=== PATIENT | male | born 2000 | race Caucasian/White ===

== ENCOUNTER 2021-08-18 11:54 | Inpatient (IN) ==
--- NOTE | 2021-08-18 12:16 | Emergency Department Note ---
History of Present Illness General Chief complaint: Mental Health Evaluation Stated complaint: MENTAL HEALTH EVAL,REF Time Seen by Provider: 08/18/21 12:02 Source: patient and family (Father at bedside) History of Present Illness Provider complaint: Mental health evaluation 20-year-old male presents emergency department with his father from [facility] for mental health evaluation. Patient is presenting for suicidal ideation. Patient states he has been having daily suicidal ideations for last 3 to 4 months 1 to kill himself with plans to hang himself from his balcony. Patient reports he is not been doing well in school and has not been turning in assignments or going to class. Patient reports increased sleepiness, decreased appetite. Father reports that the patient has a history of suicidal ideation in high school.Not currently on any psychiatric medications. Home Medications Medication Instructions Recorded Confirmed Type No Known Home Medications 08/18/21 08/18/21 History Allergies Allergy/AdvReac Type Severity Reaction Status Date / Time Penicillins AdvReac Joint Pain Verified 08/18/21 14:21 Past Med/Surg History Medical History (Updated 08/18/21 @ 15:05 by Grayson Silva) Suicidal ideation Surgical History (Updated 08/18/21 @ 12:15 by Grayson Silva) No pertinent past surgical history Family History (Updated 08/18/21 @ 12:15 by Grayson Silva) Other Depression Social History Smoking Status: Never smoker Preferred Language: Arabic Feels Safe at Home: Yes Review of Systems A total of 10 systems reviewed and were otherwise negative Physical Exam Vital Signs Vital Signs - 24 hr 08/18/21 11:55 08/18/21 12:39 08/18/21 13:57 Temperature 36.4 C L Temperature Source Temporal Artery Scan Pulse Rate 82 Pulse Rate [Finger] 76 Respiratory Rate 16 16 14 Respiratory Effort / Characteristics Non-Labored Non-Labored Spontaneous Respiratory Depth Normal Normal Blood Pressure 136/88 Blood Pressure [Left Arm] 124/67 Blood Pressure Mean 104 Blood Pressure Mean [Left Arm] 86 Pulse Oximetry 100 100 Oxygen Delivery Method Room Air Room Air Sepsis Recent Fever Within 48 Hours No Sepsis New/Unexplained Change in Mental Status N/A Sepsis Action Taken by Nursing No Action Required Physical Exam GENERAL: He is oriented to person, place, and time. He appears well-developed and well-nourished. He does not appear distressed. HENT: Exam performed. - Head: Normocephalic and atraumatic. - Right Ear: External ear normal. No mastoid tenderness. - Left Ear: External ear normal. No mastoid tenderness. - Mouth/Throat: The oropharynx is clear and moist. No trismus in the jaw. No dental abscesses or uvula swelling. No oropharyngeal exudate or tonsillar abscesses. EYES: Conjunctivae and EOM are normal. Pupils are equal, round, and reactive to light. Right eye exhibits no discharge. Left eye exhibits no discharge. No scleral icterus. NECK: Normal range of motion. Neck supple. No JVD present. No spinous process tenderness present. No carotid bruit present. No rigidity. No tracheal deviation and normal range of motion present. No Brudzinski's sign and no Kernig's sign noted. CV: Normal rate, regular rhythm, normal heart sounds and intact distal pulses. There is no peripheral edema. Palpable radial pulses bue. PULM/CHEST: Effort normal and breath sounds normal. No respiratory distress. No stridor. He has no wheezes. He has no rales. - Chest Wall: He exhibits no tenderness. ABD: The abdomen is soft. Bowel sounds are normal. He has no distension. No mass is present. There is no tenderness. There is no rebound, no guarding, no Chapa's sign and no tenderness at McBurney's point. Rovsig negative. MUSC/SKEL: Normal range of motion. There is no peripheral edema, tenderness or deformity. LYMPH: No cervical adenopathy. NEURO: He is alert and oriented to person, place, and time. He has normal stre ngth. No cranial nerve deficit or sensory deficit. Coordination and gait normal. GCS eye subscore is 4. GCS verbal subscore is 5. GCS motor subscore is 6. Cerebellar tests wnl. SKIN: Skin is warm and dry. He is not diaphoretic. PSYCH: Positive suicidal ideation. Course Course 1202: The patient was evaluated in room A5. A complete history and physical exam was performed 1503: Vital signs stable. Patient medically cleared. Patient was evacuated by psychiatry and accepted to 3 S. for admission. Medical Decision Making Laboratory Data Result diagrams: 08/18/21 12:16 08/18/21 12:16 Lab Results 08/18/21 08/18/21 08/18/21 Range/Units 12:16 12:16 12:16 WBC 7.51 (4.8-10.8) K/uL RBC 5.36 (4.7-6.1) M/uL Hgb 16.2 (14.0-18.0) g/dL Hct 46.4 (42-52) % MCV 86.6 (80-100) fL MCH 30.2 (25-34) pg MCHC 34.9 (32-36) g/dL RDW Std Deviation 38.3 (36.4-46.3) fL RDW Coeff of Maria C 12.0 (11.5-14.5) % Plt Count 314 (130-400) K/uL MPV 9.7 (7.4-10.4) fL Immature Gran % (Auto) 0.1 % Neut % (Auto) 51.1 % Lymph % (Auto) 35.8 % [place] % (Auto) 8.4 % Eos % (Auto) 3.5 % Baso % (Auto) 1.1 % Neut # (Auto) 3.84 (1.4-6.5) K/uL Lymph # (Auto) 2.69 (1.2-3.4) K/uL [place] # (Auto) 0.63 H (0.11-0.59) K/uL Eos # (Auto) 0.26 (0-0.5) K/uL Baso # (Auto) 0.08 (0-0.2) K/uL Immature Gran # (Auto) 0.01 (0.00-0.02) K/uL Sodium 139 (136-145) mmol/L Potassium 3.8 (3.5-5.1) mmol/L Chloride 103 (98-107) mmol/L Carbon Dioxide 28 (21-32) mmol/L Anion Gap 8 (3-11) BUN 11 (6-23) mg/dl Creatinine 1.02 (0.6-1.4) mg/dl Est Cr Clr Drug Dosing 117.8 ml/min Est GFR ( Amer) 122.1 ml/min Est GFR (Non-Af Amer) 105.3 ml/min BUN/Creatinine Ratio 10.8 (10-20) Glucose 95 (70-99(Fasting)) mg/dl Calcium 10.1 (8.5-10.1) mg/dl Total Bilirubin 0.6 (0.2-1.0) mg/dl AST 12 L (13-39) U/L ALT 8 (7-52) U/L Alkaline Phosphatase 64 (34-104) U/L Total Protein 7.4 (6.0-8.3) gm/dl Albumin 5.2 H (3.4-5.0) gm/dl Globulin 2.2 L (2.5-4.0) gm/dl Albumin/Globulin Ratio 2.4 H (0.9-2) TSH 2.771 (0.300-4.500) uIu/ml Urine Color Urine Appearance (Clear) Urine pH (4.5-7.5) Ur Specific [place] (1.000-1.030) Urine Protein (Negative) Urine Glucose (UA) (Negative) Urine Ketones (Negative) Urine Blood (Negative) Urine Nitrite (Negative) Urine Bilirubin (Negative) Urine Urobilinogen (Negative) Ur Leukocyte Esterase (Negative) Salicylates (3.0-30) mg/dl Urine Opiates Screen (Neg) Ur Methadone, Qual (Neg) Acetaminophen (10-30) ug/ml Urine Barbiturates (Neg) Ur Phencyclidine (PCP) (Neg) U Amphetamin/Meth Scrn (Neg) MDMA (Ecstasy) Screen (Neg) U Benzodiazepines Scrn (Neg) Ur Cocaine Metabolite (Neg) U Marijuana (THC) Screen (Neg) Ethyl Alcohol mg/dL (<10.0) mg/dl SARS-CoV-2, RNA, NAAT (NEGATIVE) 08/18/21 08/18/21 08/18/21 Range/Units 12:16 12:16 12:32 WBC (4.8-10.8) K/uL RBC (4.7-6.1) M/uL Hgb (14.0-18.0) g/dL Hct (42-52) % MCV (80-100) fL MCH (25-34) pg MCHC (32-36) g/dL RDW Std Deviation (36.4-46.3) fL RDW Coeff of Maria C (11.5-14.5) % Plt Count (130-400) K/uL MPV (7.4-10.4) fL Immature Gran % (Auto) % Neut % (Auto) % Lymph % (Auto) % [place] % (Auto) % Eos % (Auto) % Baso % (Auto) % Neut # (Auto) (1.4-6.5) K/uL Lymph # (Auto) (1.2-3.4) K/uL [place] # (Auto) (0.11-0.59) K/uL Eos # (Auto) (0-0.5) K/uL Baso # (Auto) (0-0.2) K/uL Immature Gran # (Auto) (0.00-0.02) K/uL Sodium (136-145) mmol/L Potassium (3.5-5.1) mmol/L Chloride (98-107) mmol/L Carbon Dioxide (21-32) mmol/L Anion Gap (3-11) BUN (6-23) mg/dl Creatinine (0.6-1.4) mg/dl Est Cr Clr Drug Dosing ml/min Est GFR ( Amer) ml/min Est GFR (Non-Af Amer) ml/min BUN/Creatinine Ratio (10-20) Glucose (70-99(Fasting)) mg/dl Calcium (8.5-10.1) mg/dl Total Bilirubin (0.2-1.0) mg/dl AST (13-39) U/L ALT (7-52) U/L Alkaline Phosphatase (34-104) U/L Total Protein (6.0-8.3) gm/dl Albumin (3.4-5.0) gm/dl Globulin (2.5-4.0) gm/dl Albumin/Globulin Ratio (0.9-2) TSH (0.300-4.500) uIu/ml Urine Color Yellow Urine Appearance Clear (Clear) Urine pH 5.5 (4.5-7.5) Ur Specific [place] 1.012 (1.000-1.030) Urine Protein Negative (Negative) Urine Glucose (UA) Negative (Negative) Urine Ketones Negative (Negative) Urine Blood Negative (Negative) Urine Nitrite Negative (Negative) Urine Bilirubin Negative (Negative) Urine Urobilinogen Negative (Negative) Ur Leukocyte Esterase Negative (Negative) Salicylates < 3.0 L (3.0-30) mg/dl Urine Opiates Screen (Neg) Ur Methadone, Qual (Neg) Acetaminophen < 3 L (10-30) ug/ml Urine Barbiturates (Neg) Ur Phencyclidine (PCP) (Neg) U Amphetamin/Meth Scrn (Neg) MDMA (Ecstasy) Screen (Neg) U Benzodiazepines Scrn (Neg) Ur Cocaine Metabolite (Neg) U Marijuana (THC) Screen (Neg) Ethyl Alcohol mg/dL < 10.0 (<10.0) mg/dl SARS-CoV-2, RNA, NAAT (NEGATIVE) 08/18/21 08/18/21 Range/Units 12:32 12:32 WBC (4.8-10.8) K/uL RBC (4.7-6.1) M/uL Hgb (14.0-18.0) g/dL Hct (42-52) % MCV (80-100) fL MCH (25-34) pg MCHC (32-36) g/dL RDW Std Deviation (36.4-46.3) fL RDW Coeff of Maria C (11.5-14.5) % Plt Count (130-400) K/uL MPV (7.4-10.4) fL Immature Gran % (Auto) % Neut % (Auto) % Lymph % (Auto) % [place] % (Auto) % Eos % (Auto) % Baso % (Auto) % Neut # (Auto) (1.4-6.5) K/uL Lymph # (Auto) (1.2-3.4) K/uL [place] # (Auto) (0.11-0.59) K/uL Eos # (Auto) (0-0.5) K/uL Baso # (Auto) (0-0.2) K/uL Immature Gran # (Auto) (0.00-0.02) K/uL Sodium (136-145) mmol/L Potassium (3.5-5.1) mmol/L Chloride (98-107) mmol/L Carbon Dioxide (21-32) mmol/L Anion Gap (3-11) BUN (6-23) mg/dl Creatinine (0.6-1.4) mg/dl Est Cr Clr Drug Dosing ml/min Est GFR ( Amer) ml/min Est GFR (Non-Af Amer) ml/min BUN/Creatinine Ratio (10-20) Glucose (70-99(Fasting)) mg/dl Calcium (8.5-10.1) mg/dl Total Bilirubin (0.2-1.0) mg/dl AST (13-39) U/L ALT (7-52) U/L Alkaline Phosphatase (34-104) U/L Total Protein (6.0-8.3) gm/dl Albumin (3.4-5.0) gm/dl Globulin (2.5-4.0) gm/dl Albumin/Globulin Ratio (0.9-2) TSH (0.300-4.500) uIu/ml Urine Color Urine Appearance (Clear) Urine pH (4.5-7.5) Ur Specific [place] (1.000-1.030) Urine Protein (Negative) Urine Glucose (UA) (Negative) Urine Ketones (Negative) Urine Blood (Negative) Urine Nitrite (Negative) Urine Bilirubin (Negative) Urine Urobilinogen (Negative) Ur Leukocyte Esterase (Negative) Salicylates (3.0-30) mg/dl Urine Opiates Screen Neg (Neg) Ur Methadone, Qual Neg (Neg) Acetaminophen (10-30) ug/ml Urine Barbiturates Neg (Neg) Ur Phencyclidine (PCP) Neg (Neg) U Amphetamin/Meth Scrn Neg (Neg) MDMA (Ecstasy) Screen Neg (Neg) U Benzodiazepines Scrn Neg (Neg) Ur Cocaine Metabolite Neg (Neg) U Marijuana (THC) Screen Neg (Neg) Ethyl Alcohol mg/dL (<10.0) mg/dl SARS-CoV-2, RNA, NAAT NEGATIVE (NEGATIVE) MDM Narrative Vital signs stable. Patient medically cleared. Patient was evacuated by psychiatry and accepted to 3 S. for admission. Impression & Plan Depression with suicidal ideation Discharge Plan Visit Data Chief Complaint: Mental Health Evaluation Stated Complaint: MENTAL HEALTH EVAL,REF ED Provider: Grayson Silva Discharge Problem: Depression with suicidal ideation Patient Disposition: Admitted As Inpatient Forms Stand Alone Forms: [facility], Suicide Prevention Resources Prescriptions Prescriptions: No Action No Known Home Medications RF: 0 Referrals Referrals: PCP,NO [Physician] -
[2021-08-18 12:43] LABS: Basophils # (auto) 0.08 K/uL (0-0.2); Basophils % (auto) 1.1 %; Eosinophils # (auto) 0.26 K/uL (0-0.5); Eosinophils % (auto) 3.5 %; Hematocrit (blood only) 46.4 % (42-52); Hemoglobin 16.2 g/dL (14.0-18.0); Immature Granulocytes # (auto) 0.01 K/uL (0.00-0.02); Immature Granulocytes % (auto) 0.1 %; Lymphocytes # (auto) 2.69 K/uL (1.2-3.4); Lymphocytes % (auto) 35.8 %; Mean Corpuscular Hemoglobin 30.2 pg (25-34); Mean Corpuscular Hgb Conc 34.9 g/dL (32-36); Mean Corpuscular Volume 86.6 fL (80-100); Mean Platelet Volume 9.7 fL (7.4-10.4); Monocytes # (auto) 0.63 K/uL (0.11-0.59); Monocytes % (auto) 8.4 %; Neutrophils # (auto) 3.84 K/uL (1.4-6.5); Neutrophils % (auto) 51.1 %; Platelet Count 314 K/uL (130-400); RDW Standard Deviation 38.3 fL (36.4-46.3); Red Blood Count 5.36 M/uL (4.7-6.1); White Blood Count 7.51 K/uL (4.8-10.8)
[2021-08-18 12:50] LABS: Appearance Urine Clear (Clear); Bilirubin Urine Negative (Negative); Blood Urine Negative (Negative); Color Urine Yellow; Glucose Urine UA Negative (Negative); Ketones Urine Negative (Negative); Leukocyte Esterase Urine Negative (Negative); Nitrite Urine Negative (Negative); Protein Urine Negative (Negative); Specific Gravity Urine 1.012 (1.000-1.030); Urobilinogen Urine Negative (Negative); pH Urine 5.5 (4.5-7.5)
[2021-08-18 13:11] LABS: Albumin Globulin Ratio 2.4 (0.9-2); Albumin Level 5.2 gm/dl (3.4-5.0); BUN Creatinine Ratio 10.8 (10-20); Bilirubin,Total 0.6 mg/dl (0.2-1.0); Calcium 10.1 mg/dl (8.5-10.1); Creatinine Clr Calc Pharmacy 117.8 ml/min; Est GFR (African American) 122.1 ml/min; Est GFR (Non-African American) 105.3 ml/min; Globulin 2.2 gm/dl (2.5-4.0); Potassium 3.8 mmol/L (3.5-5.1); Total Protein 7.4 gm/dl (6.0-8.3)
[2021-08-18 13:13] LABS: Acetaminophen < 3 ug/ml (10-30); Salicylate < 3.0 mg/dl (3.0-30)
[2021-08-18 13:28] LABS: Amphetamines+Metham, Urine Neg (Neg); Barbiturates, Urine Neg (Neg); Benzodiazepine, Urine Neg (Neg); Cocaine, Urine Neg (Neg); MDMA (Ecstacy), Urine Neg (Neg); Methadone, Urine Neg (Neg); Opiate, Urine Neg (Neg); Phencyclidine, Urine Neg (Neg)
[2021-08-18] MEDS ORDERED: BISMUTH SUBSALICYLATE LIQD 236 ML PO PRN (15:09)
[2021-08-18] MEDS ORDERED: ALUMINUM/MAGNESIUM SUSP 30 ML UDC PO PRN (15:09)
[2021-08-18] MEDS ORDERED: MAGNESIUM HYDROXIDE SUSP 30 ML UDC PO PRN (15:09)
[2021-08-18] MEDS ORDERED: hydrOXYzine HCl 25 MG TAB PO PRN ×2 (15:09)
[2021-08-18] MEDS ORDERED: ACETAMINOPHEN 325 MG TAB PO PRN (15:09)
[2021-08-18] MEDS ORDERED: SODIUM CHLORIDE 0.65% NA SOLN 45 ML (OCEAN) PRN (15:09)
--- NOTE | 2021-08-19 09:31 | History & Physical ---
Date of Service August 19, 2021 Impression / Recommendations Impression Javid is a 20-year-old male with persistent suicidal thoughts and multiple vegetative symptoms of depression who presented with SI and plan to hang himself from his apartment balcony. (1) Depression with suicidal ideation: 08/19/21: The patient was admitted to the [facility] ([facility]) on q15 min checks (behavioral with suicide precautions) for safety. The patient will participate in group, recreational, and milieu therapies and will be offered additional individual and family sessions as clinically appropriate. Risks/benefits/alternatives reviewed re: antidepressants for the treatment of depression and/or anxiety. Discussion included but was not limited to FDA warnings re: suicidality in adolescents and young adults. The patient agreed to a trial of Prozac 10 mg today then 20 mg starting tomorrow. Inventory Assets Strengths: intelligent, family support Needs: outpatient therapy, family session Risk Factors Assessment Male: Yes : Yes Do You Have Access To A Gun?: No Mental Health Diagnoses: Yes Substance Use Disorders: No Previous Attempt: No Previous Psychiatric Hospitalization: No Protective Factors Assessment Employed: No Stable Relationships: Yes Supportive Family: Yes Psychiatric History Identifying Data JAVID ALBARRAN is a 20-year-old M, [employer] from [place], has a history of SI, and was admitted on 08/18/21 15:19 on a 201 voluntary commitment for SI with plan. Chief Complaint "My friend encouraged me to get help". History of Present Illness Javid reports going to [facility] to see counseling and his family was contacted once they started discussing hospitalization. His father happened to be working in [place] and came to campus to drive him to the ED. He admitted to suicidal thoughts for the past 2-4 months with intrussive thoughts about hanging himself from the balcony, even visualizing it. His plan involved tying his bed sheets together. In addition to these thoughts, he reported multiple vegetative sympto ms of depression such as fatigue, poor appetite, and lack of motivation. He hasn't been attending classes or completing work. He doesn't even respond to his professors when they inquire about his uncharacteristic lack of attendance. Some classes he hasn't attended all semester. He states when he is able to get to class he "get it". He denies symptoms of solomon or psychosis and doesn't view himself as particularly anxious. Past Psychiatric History Previous Psych History: had 3-4 sessions of therapy senior year of high school for SI and did not return as he felt he "could apply what I learned" Current Psychiatric Diagnosis: None Outpatient Services: none Previous Psych Admissions: none Do You Have Access To A Gun?: No Describe Attempts in the Past: None Past Medication Trials: denied Allergies Allergy/AdvReac Type Severity Reaction Status Date / Time Penicillins AdvReac Joint Pain Verified 08/18/21 14:21 Home Medications Medication Instructions Recorded Confirmed Type No Known Home Medications 08/18/21 08/18/21 History Family History Family History of: Depression and Doesn't Know Family Mental Health History Comment: sister Alcohol History Hx of Alcohol Use Over the Past 12 Months: Yes (Occasionally) AUDIT Total Score: 3 Smoking Use Have You Smoked or Used Tobacco Products in the Last 30 Days: No Smoking Status: Never smoker Substance History Hx of Prescription Med Misuse Over the Past 12 Months: No Hx of Over the Counter Med Misuse Over the Past 12 Months: No Hx of Inhalent Misuse Over the Past 12 Months: No Hx of Organic Substance Use Over the Past 12 Months: No Hx of Illegal Substances/Street Drug Use Over Past 12 Months: No Problems as a Result of Past Substance Use: None Identified Personal History Living Arrangements: Apartment Childhood: 1 of triplets (bro, janessa) and also has a younger brother. Highest Grade Completed: Some College Employment Status: Student Marital Status: Single Number Of Children: 0 Beliefs That Will Affect Care: None Current Legal Problems: No Hx Traumatic Life Events: No Patient History Medical History Suicidal ideation Surgical History No pertinent past surgical history Family History (Updated 08/18/21 @ 12:15 by Grayson Silva) Other Depression Social History Smoking Status: Never smoker Preferred Language: [place] Verdean Communication Ability: Effective Field Research Assistant Required: No Beliefs That Will Affect Care: None Feels Safe at Home: Yes Assistive Devices: Glasses Review of Systems Review of Systems: All systems reviewed & are unremarkable except as noted in HPI & below Physical Exam Psychiatric: Orientation: alert and oriented x 3 Apperance: appropriately dressed and appropriately groomed Eye Contact: good eye contact Motor Behavior: no abnormal motor movements Speech: normal rate/rhythm/volume of speech Affect: + depressed affect Mood: + depressed mood Thought Process: goal directed thought process Thought Content: reality based without delusions Suicidal Thoughts: denies suicidal intent; + reports suicidal thoughts and + reports suicidal plan Homicidal Thoughts: denies homicidal thoughts Hallucinations: no auditory hallucinations and no visual hallucinations Cognition: attention grossly intact and language grossly intact Estimated Intelligence: consistent with education level Insight: + limited insight Judgement: + limited judgement Vital Signs (Past 24 Hours): Last Vital Signs Temp 36.8 C 08/19/21 06:29 Pulse 57 L 08/19/21 06:30 Resp 16 08/19/21 06:29 BP 120/76 08/19/21 06:30 Pulse Ox 99 08/18/21 15:37 Exam Statement: A physical exam was performed in the ED by Dr. Silva for the purposes of medical clearance. I accept that physical as correct and adequate for the purposes of the inpatient physical exam. Results & Data ([facility]) Laboratory Results Laboratory Results - last 24 hr 08/18/21 08/18/21 08/18/21 12:16 12:16 12:16 WBC 7.51 RBC 5.36 Hgb 16.2 Hct 46.4 MCV 86.6 MCH 30.2 MCHC 34.9 RDW Std Deviation 38.3 RDW Coeff of Maria C 12.0 Plt Count 314 MPV 9.7 Immature Gran % (Auto) 0.1 Neut % (Auto) 51.1 Lymph % (Auto) 35.8 [place] % (Auto) 8.4 Eos % (Auto) 3.5 Baso % (Auto) 1.1 Neut # (Auto) 3.84 Lymph # (Auto) 2.69 [place] # (Auto) 0.63 H Eos # (Auto) 0.26 Baso # (Auto) 0.08 Immature Gran # (Auto) 0.01 Sodium 139 Potassium 3.8 Chloride 103 Carbon Dioxide 28 Anion Gap 8 BUN 11 Creatinine 1.02 Est Cr Clr Drug Dosing 117.8 Est GFR ( Amer) 122.1 Est GFR (Non-Af Amer) 105.3 BUN/Creatinine Ratio 10.8 Glucose 95 Calcium 10.1 Total Bilirubin 0.6 AST 12 L ALT 8 Alkaline Phosphatase 64 Total Protein 7.4 Albumin 5.2 H Globulin 2.2 L Albumin/Globulin Ratio 2.4 H TSH 2.771 Urine Color Urine Appearance Urine pH Ur Specific [place] Urine Protein Urine Glucose (UA) Urine Ketones Urine Blood Urine Nitrite Urine Bilirubin Urine Urobilinogen Ur Leukocyte Esterase Salicylates Urine Opiates Screen Ur Methadone, Qual Acetaminophen Urine Barbiturates Ur Phencyclidine (PCP) U Amphetamin/Meth Scrn MDMA (Ecstasy) Screen U Benzodiazepines Scrn Ur Cocaine Metabolite U Marijuana (THC) Screen Ethyl Alcohol mg/dL SARS-CoV-2, RNA, NAAT 08/18/21 08/18/21 08/18/21 12:16 12:16 12:32 WBC RBC Hgb Hct MCV MCH MCHC RDW Std Deviation RDW Coeff of Maria C Plt Count MPV Immature Gran % (Auto) Neut % (Auto) Lymph % (Auto) [place] % (Auto) Eos % (Auto) Baso % (Auto) Neut # (Auto) Lymph # (Auto) [place] # (Auto) Eos # (Auto) Baso # (Auto) Immature Gran # (Auto) Sodium Potassium Chloride Carbon Dioxide Anion Gap BUN Creatinine Est Cr Clr Drug Dosing Est GFR ( Amer) Est GFR (Non-Af Amer) BUN/Creatinine Ratio Glucose Calcium Total Bilirubin AST ALT Alkaline Phosphatase Total Protein Albumin Globulin Albumin/Globulin Ratio TSH Urine Color Yellow Urine Appearance Clear Urine pH 5.5 Ur Specific [place] 1.012 Urine Protein Negative Urine Glucose (UA) Negative Urine Ketones Negative Urine Blood Negative Urine Nitrite Negative Urine Bilirubin Negative Urine Urobilinogen Negative Ur Leukocyte Esterase Negative Salicylates < 3.0 L Urine Opiates Screen Ur Methadone, Qual Acetaminophen < 3 L Urine Barbiturates Ur Phencyclidine (PCP) U Amphetamin/Meth Scrn MDMA (Ecstasy) Screen U Benzodiazepines Scrn Ur Cocaine Metabolite U Marijuana (THC) Screen Ethyl Alcohol mg/dL < 10.0 SARS-CoV-2, RNA, NAAT 08/18/21 08/18/21 12:32 12:32 WBC RBC Hgb Hct MCV MCH MCHC RDW Std Deviation RDW Coeff of Maria C Plt Count MPV Immature Gran % (Auto) Neut % (Auto) Lymph % (Auto) [place] % (Auto) Eos % (Auto) Baso % (Auto) Neut # (Auto) Lymph # (Auto) [place] # (Auto) Eos # (Auto) Baso # (Auto) Immature Gran # (Auto) Sodium Potassium Chloride Carbon Dioxide Anion Gap BUN Creatinine Est Cr Clr Drug Dosing Est GFR ( Amer) Est GFR (Non-Af Amer) BUN/Creatinine Ratio Glucose Calcium Total Bilirubin AST ALT Alkaline Phosphatase Total Protein Albumin Globulin Albumin/Globulin Ratio TSH Urine Color Urine Appearance Urine pH Ur Specific [place] Urine Protein Urine Glucose (UA) Urine Ketones Urine Blood Urine Nitrite Urine Bilirubin Urine Urobilinogen Ur Leukocyte Esterase Salicylates Urine Opiates Screen Neg Ur Methadone, Qual Neg Acetaminophen Urine Barbiturates Neg Ur Phencyclidine (PCP) Neg U Amphetamin/Meth Scrn Neg MDMA (Ecstasy) Screen Neg U Benzodiazepines Scrn Neg Ur Cocaine Metabolite Neg U Marijuana (THC) Screen Neg Ethyl Alcohol mg/dL SARS-CoV-2, RNA, NAAT NEGATIVE Current Inpatient Medications Current Inpatient Medications: Current Inpatient Medications Acetaminophen (Acetaminophen 325 Mg Tab) 650 mg PO Q4H PRN PRN Reason: Headache or Minor Fever Stop: 09/17/21 15:08 Al Hydrox/Mg Hydrox/Simethicone (Aluminum/Magnesium Susp 30 Ml Udc) 30 ml PO Q4H PRN PRN Reason: GI Upset Stop: 09/17/21 15:08 Bismuth Subsalicylate (Bismuth Subsalicylate Liqd 236 Ml) 15 ml PO PRN PRN PRN Reason: Loose Stool Stop: 09/17/21 15:08 Hydroxyzine HCl (Hydroxyzine Hcl 25 Mg Tab) 50 mg PO HSZ PRN PRN Reason: Insomnia Stop: 09/17/21 15:08 Hydroxyzine HCl (Hydroxyzine Hcl 25 Mg Tab) 25 mg PO Q4H PRN PRN Reason: Anxiety Stop: 09/17/21 15:08 Magnesium Hydroxide (Magnesium Hydroxide Susp 30 Ml Udc) 30 ml PO DAILY PRN PRN Reason: Constipation Stop: 09/17/21 15:08 Sodium Chloride (Sodium Chloride 0.65% Na Soln 45 Ml ([place])) 1 - 2 sprays NA PRN PRN PRN Reason: Nasal Dryness/Congestion Stop: 09/17/21 15:08
[2021-08-19] MEDS ORDERED: FLUoxetine HCL 10 MG CAP PO ONE (11:30)
[2021-08-20] MEDS: FLUoxetine HCL 20 MG CAP PO SCH (08:48)
--- NOTE | 2021-08-20 09:52 | Psychiatric Progress Note ---
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 Diagnostically consistent with MDD. The patient is deemed unstable and requires psychiatric hospitalization for diagnostic clarification, safety and stabilization, medication management and development of further coping skills. 08/20/21: Tolerating increase of fluoxetine with no side effects. Some improvement in mood with lessening of intensity of SI. (1) Depression with suicidal ideation: 08/20/21: Increased fluoxetine to 20mg qd. 08/19/21: The patient was admitted to the [facility] ([facility] inpatient mental health unit) on q15 min checks (behavioral with suicide precautions) for safety. The patient will participate in group, recreational, and milieu therapies and will be offered additional individual and family sessions as clinically appropriate. Risks/benefits/alternatives reviewed re: antidepressants for the treatment of depression and/or anxiety. Discussion included but was not limited to FDA warnings re: suicidality in adolescents and young adults. The patient agreed to a trial of Prozac 10 mg today then 20 mg starting tomorrow. 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 Chief Complaint "I'm doing a little bit better". Review of Systems Sleep Information Total Hours of Sleep: 6.5 Meal Information Percent Meal Consumed - Breakfast: 100 Percent Meal Consumed - Lunch: 100 Percent Meal Consumed - Dinner: 100 Subjective Subjective Patient was seen & assessed and interval progress reviewed with treatment team nursing and social work. He continues to tolerate the fluoxetine well, denies any side effects. Feels that being on the unit is helping his mood and he feels safer. Having some intermittent SI but states it is "passing" and doesn't stick around like before. Denies intent or plan. Feels he can alert staff should that change or he feel unsafe. Physical Exam Psychiatric Orientation: alert and oriented x 3 Apperance: appropriately dressed and appropriately groomed Eye Contact: good eye contact Motor Behavior: no abnormal motor movements Speech: normal rate/rhythm/volume of speech Affect: + depressed affect Mood: + depressed mood Thought Process: goal directed thought process Thought Content: reality based without delusions Suicidal Thoughts: denies suicidal plan and denies suicidal intent; + reports suicidal thoughts Homicidal Thoughts: denies homicidal thoughts Hallucinations: no auditory hallucinations and no visual hallucinations Cognition: recent memory grossly intact, remote memory grossly intact, attention grossly intact and language grossly intact Estimated Intelligence: consistent with education level Insight: + fair insight Judgement: + fair judgement Vital Signs (Past 24 Hours) Last Vital Signs Temp 36.5 C 08/20/21 06:00 Pulse 90 08/20/21 06:25 Resp 16 08/20/21 06:00 BP 116/83 08/20/21 06:25 Pulse Ox 99 08/18/21 15:37 Results & Data ([facility]) Current Inpatient Medications Current Inpatient Medications: Current Inpatient Medications Acetaminophen (Acetaminophen 325 Mg Tab) 650 mg PO Q4H PRN PRN Reason: Headache or Minor Fever Stop: 09/17/21 15:08 Al Hydrox/Mg Hydrox/Simethicone (Aluminum/Magnesium Susp 30 Ml Udc) 30 ml PO Q4H PRN PRN Reason: GI Upset Stop: 09/17/21 15:08 Bismuth Subsalicylate (Bismuth Subsalicylate Liqd 236 Ml) 15 ml PO PRN PRN PRN Reason: Loose Stool Stop: 09/17/21 15:08 Fluoxetine HCl (Fluoxetine Hcl 20 Mg Cap) 20 mg PO QAM MONIQUE Stop: 09/19/21 08:59 Last Admin: 08/20/21 08:48 Dose: 20 mg Documented by: Hydroxyzine HCl (Hydroxyzine Hcl 25 Mg Tab) 50 mg PO HSZ PRN PRN Reason: Insomnia Stop: 09/17/21 15:08 Hydroxyzine HCl (Hydroxyzine Hcl 25 Mg Tab) 25 mg PO Q4H PRN PRN Reason: Anxiety Stop: 09/17/21 15:08 Magnesium Hydroxide (Magnesium Hydroxide Susp 30 Ml Udc) 30 ml PO DAILY PRN PRN Reason: Constipation Stop: 09/17/21 15:08 Sodium Chloride (Sodium Chloride 0.65% Na Soln 45 Ml ([place])) 1 - 2 sprays NA PRN PRN PRN Reason: Nasal Dryness/Congestion Stop: 09/17/21 15:08 Mental Health & Subst Abuse Tx Therapist Name of Therapist: None Travel Registered Nurse Nicu Name of Travel Registered Nurse Nicu: None Post Discharge Appointments Primary Care Physician Name Of Family Doctor: None local
[2021-08-21] MEDS: FLUoxetine HCL 20 MG CAP PO SCH (08:39)
--- NOTE | 2021-08-21 08:39 | Psychiatric Progress Note ---
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 Diagnostically consistent with MDD. The patient is deemed unstable and requires psychiatric hospitalization for diagnostic clarification, safety and stabilization, medication management and development of further coping skills. 08/21/21: Tolerating fluoxetine but with some mild constipation. Some improvement in mood with lessening of intensity and frequency of SI. Had family meeting, still considering if he is going to continue with college semester. (1) Depression with suicidal ideation: 08/21/21: Continue with fluoxetine. Adding colace and miralax for constipation. 08/20/21: Increased fluoxetine to 20mg qd. 08/19/21: The patient was admitted to the [facility] ([facility] mental health unit) on q15 min checks (behavioral with suicide precautions) for safety. The patient will participate in group, recreational, and milieu therapies and will be offered additional individual and family sessions as clinically appropriate. Risks/benefits/alternatives reviewed re: antidepressants for the treatment of depression and/or anxiety. Discussion included but was not limited to FDA warnings re: suicidality in adolescents and young adults. The patient agreed to a trial of Prozac 10 mg today then 20 mg starting tomorrow. 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 Chief Complaint "I'm ok". Review of Systems Sleep Information Total Hours of Sleep: 6.25 Meal Information Percent Meal Consumed - Breakfast: 100 Percent Meal Consumed - Lunch: 100 Percent Meal Consumed - Dinner: 100 Subjective Subjective Patient was seen & assessed and interval progress reviewed with treatment team nursing and social work. Supporting peers on the unit and using humor at times to cope. Family meeting today which he felt went well. Had some difficulty with sleep with awakening around 3:15am but was eventually able to fall back asleep. Having some constipation otherwise no side effects to fluoxetine. No SI today, some thoughts yesterday. Finding groups helpful. Still deciding if he will withdraw from the semester. Physical Exam Psychiatric Orientation: alert and oriented x 3 Apperance: appropriately dressed and appropriately groomed Eye Contact: good eye contact Motor Behavior: no abnormal motor movements Speech: normal rate/rhythm/volume of speech Affect: + depressed affect Mood: + depressed mood Thought Process: goal directed thought process Thought Content: reality based without delusions Suicidal Thoughts: denies suicidal thoughts, denies suicidal plan and denies suicidal intent Homicidal Thoughts: denies homicidal thoughts Hallucinations: no auditory hallucinations and no visual hallucinations Cognition: recent memory grossly intact, remote memory grossly intact, attention grossly intact and language grossly intact Estimated Intelligence: consistent with education level Insight: + fair insight Judgement: + fair judgement Vital Signs (Past 24 Hours) Last Vital Signs Temp 36.6 C 08/21/21 06:22 Pulse 114 H 08/21/21 06:24 Resp 18 08/21/21 06:22 BP 112/67 08/21/21 06:24 Pulse Ox 99 08/18/21 15:37 Results & Data ([facility]) Current Inpatient Medications Current Inpatient Medications: Current Inpatient Medications Acetaminophen (Acetaminophen 325 Mg Tab) 650 mg PO Q4H PRN PRN Reason: Headache or Minor Fever Stop: 09/17/21 15:08 Al Hydrox/Mg Hydrox/Simethicone (Aluminum/Magnesium Susp 30 Ml Udc) 30 ml PO Q4H PRN PRN Reason: GI Upset Stop: 09/17/21 15:08 Bismuth Subsalicylate (Bismuth Subsalicylate Liqd 236 Ml) 15 ml PO PRN PRN PRN Reason: Loose Stool Stop: 09/17/21 15:08 Fluoxetine HCl (Fluoxetine Hcl 20 Mg Cap) 20 mg PO QAM MONIQUE Stop: 09/19/21 08:59 Last Admin: 08/20/21 08:48 Dose: 20 mg Documented by: Hydroxyzine HCl (Hydroxyzine Hcl 25 Mg Tab) 50 mg PO HSZ PRN PRN Reason: Insomnia Stop: 09/17/21 15:08 Hydroxyzine HCl (Hydroxyzine Hcl 25 Mg Tab) 25 mg PO Q4H PRN PRN Reason: Anxiety Stop: 09/17/21 15:08 Magnesium Hydroxide (Magnesium Hydroxide Susp 30 Ml Udc) 30 ml PO DAILY PRN PRN Reason: Constipation Stop: 09/17/21 15:08 Sodium Chloride (Sodium Chloride 0.65% Na Soln 45 Ml ([place])) 1 - 2 sprays NA PRN PRN PRN Reason: Nasal Dryness/Congestion Stop: 09/17/21 15:08 Mental Health & Subst Abuse Tx Therapist Name of Therapist: None Geospatial Engineer Name of Geospatial Engineer: None Post Discharge Appointments Primary Care Physician Name Of Family Doctor: None local
[2021-08-21] MEDS: DOCUSATE SODIUM 100 MG CAP PO SCH (20:41)
[2021-08-22] MEDS: POLYETHYLENE (MIRALAX) 17 GM PACK PO SCH (08:40)
[2021-08-22] MEDS: FLUoxetine HCL 20 MG CAP PO SCH (08:40)
[2021-08-22] MEDS: DOCUSATE SODIUM 100 MG CAP PO SCH ×2 (08:40→20:41)
--- NOTE | 2021-08-22 09:35 | Psychiatric Progress Note ---
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 Diagnostically consistent with MDD. The patient is deemed unstable and requires psychiatric hospitalization for diagnostic clarification, safety and stabilization, medication management and development of further coping skills. 08/22/21: Continues to tolerate fluoxetine well, still with some fleeting SI but gradual lessening in intensity and frequency. Sleep improving. Addressing constipation. (1) Depression with suicidal ideation: 08/22/21: Continue fluoxetine. 08/21/21: Continue with fluoxetine. Adding colace and miralax for constipation. 08/20/21: Increased fluoxetine to 20mg qd. 08/19/21: The patient was admitted to the [facility] ([facility] health unit) on q15 min checks (behavioral with suicide precautions) for safety. The patient will participate in group, recreational, and milieu therapies and will be offered additional individual and family sessions as clinically appropriate. Risks/benefits/alternatives reviewed re: antidepressants for the treatment of depression and/or anxiety. Discussion included but was not limited to FDA warnings re: suicidality in adolescents and young adults. The patient agreed to a trial of Prozac 10 mg today then 20 mg starting tomorrow. 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 Chief Complaint "I'm alright". Review of Systems Sleep Information Total Hours of Sleep: 7.5 Meal Information Percent Meal Consumed - Breakfast: 100 Percent Meal Consumed - Lunch: 100 Percent Meal Consumed - Dinner: 100 Subjective Subjective Patient was seen & assessed and interval progress reviewed with treatment team nursing and social work. Had some fleeting SI yesterday afternoon. Continues to tolerate the fluoxetine. Had bowel movement after additional of colace and miralax. No SI so far today. Sleep improving. Physical Exam Psychiatric Orientation: alert and oriented x 3 Apperance: appropriately dressed and appropriately groomed Eye Contact: good eye contact Motor Behavior: no abnormal motor movements Speech: normal rate/rhythm/volume of speech Affect: + depressed affect Mood: + depressed mood Thought Process: goal directed thought process Thought Content: reality based without delusions Suicidal Thoughts: denies suicidal plan and denies suicidal intent; + reports suicidal thoughts (intermittent "fleeting thoughts") Homicidal Thoughts: denies homicidal thoughts Hallucinations: no auditory hallucinations and no visual hallucinations Cognition: recent memory grossly intact, remote memory grossly intact, attention grossly intact and language grossly intact Estimated Intelligence: consistent with education level Insight: + fair insight Judgement: + fair judgement Vital Signs (Past 24 Hours) Last Vital Signs Temp 36.5 C 08/22/21 06:23 Pulse 128 H 08/22/21 06:24 Resp 16 08/22/21 06:23 BP 137/89 08/22/21 06:24 Pulse Ox 99 08/18/21 15:37 Results & Data ([facility]) Current Inpatient Medications Current Inpatient Medications: Current Inpatient Medications Acetaminophen (Acetaminophen 325 Mg Tab) 650 mg PO Q4H PRN PRN Reason: Headache or Minor Fever Stop: 09/17/21 15:08 Al Hydrox/Mg Hydrox/Simethicone (Aluminum/Magnesium Susp 30 Ml Udc) 30 ml PO Q4H PRN PRN Reason: GI Upset Stop: 09/17/21 15:08 Bismuth Subsalicylate (Bismuth Subsalicylate Liqd 236 Ml) 15 ml PO PRN PRN PRN Reason: Loose Stool Stop: 09/17/21 15:08 Docusate Sodium (Docusate Sodium 100 Mg Cap) 100 mg PO BID [facility] Stop: 09/20/21 20:59 Last Admin: 08/22/21 08:40 Dose: 100 mg Documented by: Fluoxetine HCl (Fluoxetine Hcl 20 Mg Cap) 20 mg PO QAM MONIQUE Stop: 09/19/21 08:59 Last Admin: 08/22/21 08:40 Dose: 20 mg Documented by: Hydroxyzine HCl (Hydroxyzine Hcl 25 Mg Tab) 50 mg PO HSZ PRN PRN Reason: Insomnia Stop: 09/17/21 15:08 Hydroxyzine HCl (Hydroxyzine Hcl 25 Mg Tab) 25 mg PO Q4H PRN PRN Reason: Anxiety Stop: 09/17/21 15:08 Magnesium Hydroxide (Magnesium Hydroxide Susp 30 Ml Udc) 30 ml PO DAILY PRN PRN Reason: Constipation Stop: 09/17/21 15:08 Polyethylene Glycol (Polyethylene (Miralax) 17 Gm Pack) 17 gm PO DAILY MONIQUE Stop: 09/21/21 08:59 Last Admin: 08/22/21 08:40 Dose: 17 gm Documented by: Sodium Chloride (Sodium Chloride 0.65% Na Soln 45 Ml ([place])) 1 - 2 sprays NA PRN PRN PRN Reason: Nasal Dryness/Congestion Stop: 09/17/21 15:08 Mental Health & Subst Abuse Tx Therapist Name of Therapist: None Unit Trust Manager Name of Unit Trust Manager: None Post Discharge Appointments Primary Care Physician Name Of Family Doctor: None local
[2021-08-23] MEDS: FLUoxetine HCL 20 MG CAP PO SCH (08:31)
[2021-08-23] MEDS: DOCUSATE SODIUM 100 MG CAP PO SCH ×2 (08:31→21:51)
--- NOTE | 2021-08-23 08:34 | Psychiatric Progress Note ---
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 Diagnostically consistent with MDD. The patient is deemed unstable and requires psychiatric hospitalization for diagnostic clarification, safety and stabilization, medication management and development of further coping skills. 08/23/21: Steady improvement in mood, no SI. Tolerating fluoxetine well with no further constipation. Stable sleep. Engaging actively in groups and with peers. (1) Depression with suicidal ideation: 08/23/21: Continue fluoxetine. 08/22/21: Continue fluoxetine. 08/21/21: Continue with fluoxetine. Adding colace and miralax for constipation. 08/20/21: Increased fluoxetine to 20mg qd. 08/19/21: The patient was admitted to the [facility] ([facility] health unit) on q15 min checks (behavioral with suicide precautions) for safety. The patient will participate in group, recreational, and milieu therapies and will be offered additional individual and family sessions as clinically appropriate. Risks/benefits/alternatives reviewed re: antidepressants for the treatment of depression and/or anxiety. Discussion included but was not limited to FDA warnings re: suicidality in adolescents and young adults. The patient agreed to a trial of Prozac 10 mg today then 20 mg starting tomorrow. 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 Chief Complaint "I slept pretty good". Review of Systems Sleep Information Total Hours of Sleep: 7 Meal Information Percent Meal Consumed - Breakfast: 100 Percent Meal Consumed - Lunch: 100 Percent Meal Consumed - Dinner: 100 Subjective Subjective Patient was seen & assessed and interval progress reviewed with treatment team nursing and social work. His mood was slightly lower yesterday evening at change of shift. No medication side effects. Today he reports stable mood and denies any SI last evening nor overnight nor today. Discussed a book he has been reading, he's enjoyed playing Monopoly with a peer. Physical Exam Psychiatric Orientation: alert and oriented x 3 Apperance: appropriately dressed and appropriately groomed Eye Contact: good eye contact Motor Behavior: no abnormal motor movements Speech: normal rate/rhythm/volume of speech Affect: euthymic affect Mood: no depressed mood and no anxious mood Thought Process: goal directed thought process Thought Content: reality based without delusions Suicidal Thoughts: denies suicidal thoughts, denies suicidal plan and denies suicidal intent Homicidal Thoughts: denies homicidal thoughts Hallucinations: no auditory hallucinations and no visual hallucinations Cognition: recent memory grossly intact, remote memory grossly intact, attention grossly intact and language grossly intact Estimated Intelligence: consistent with education level Insight: good insight Judgement: good judgement Vital Signs (Past 24 Hours) Last Vital Signs Temp 36.9 C 08/23/21 05:53 Pulse 77 08/23/21 05:53 Resp 16 08/23/21 05:53 BP 110/72 08/23/21 05:53 Pulse Ox 99 08/18/21 15:37 Results & Data ([facility]) Current Inpatient Medications Current Inpatient Medications: Current Inpatient Medications Acetaminophen (Acetaminophen 325 Mg Tab) 650 mg PO Q4H PRN PRN Reason: Headache or Minor Fever Stop: 09/17/21 15:08 Al Hydrox/Mg Hydrox/Simethicone (Aluminum/Magnesium Susp 30 Ml Udc) 30 ml PO Q4H PRN PRN Reason: GI Upset Stop: 09/17/21 15:08 Bismuth Subsalicylate (Bismuth Subsalicylate Liqd 236 Ml) 15 ml PO PRN PRN PRN Reason: Loose Stool Stop: 09/17/21 15:08 Docusate Sodium (Docusate Sodium 100 Mg Cap) 100 mg PO BID MONIQUE Stop: 09/20/21 20:59 Last Admin: 08/23/21 08:31 Dose: 100 mg Documented by: Fluoxetine HCl (Fluoxetine Hcl 20 Mg Cap) 20 mg PO QAM MONIQUE Stop: 09/19/21 08:59 Last Admin: 08/23/21 08:31 Dose: 20 mg Documented by: Hydroxyzine HCl (Hydroxyzine Hcl 25 Mg Tab) 50 mg PO HSZ PRN PRN Reason: Insomnia Stop: 09/17/21 15:08 Hydroxyzine HCl (Hydroxyzine Hcl 25 Mg Tab) 25 mg PO Q4H PRN PRN Reason: Anxiety Stop: 09/17/21 15:08 Magnesium Hydroxide (Magnesium Hydroxide Susp 30 Ml Udc) 30 ml PO DAILY PRN PRN Reason: Constipation Stop: 09/17/21 15:08 Polyethylene Glycol (Polyethylene (Miralax) 17 Gm Pack) 17 gm PO DAILY MONIQUE Stop: 09/21/21 08:59 Last Admin: 08/22/21 08:40 Dose: 17 gm Documented by: Sodium Chloride (Sodium Chloride 0.65% Na Soln 45 Ml ([place])) 1 - 2 sprays NA PRN PRN PRN Reason: Nasal Dryness/Congestion Stop: 09/17/21 15:08 Mental Health & Subst Abuse Tx Psychiatrist Name of Psychiatrist: Micheal Darling Psychiatrist's Date of Appointment with Psychiatrist: 09/19/21 Time of Appointment with Psychiatrist: 2:30pm Psychiatric Appointment Comment: [address] [place], [place] Therapist Name of Therapist: [facility] Therapist's Therapy Appointment Comment: Telehealth Hand Therapist Name of Hand Therapist: None Post Discharge Appointments Primary Care Physician Name Of Family Doctor: None local
[2021-08-23] MEDS: POLYETHYLENE (MIRALAX) 17 GM PACK PO SCH (09:48)
--- NOTE | 2021-08-24 08:27 | Discharge Summary ---
Date of Service August 24, 2021 History of Present Illness Javid reports going to [facility] to see counseling and his family was contacted once they started discussing hospitalization. His father happened to be working in [place] and came to campus to drive him to the ED. He admitted to suicidal thoughts for the past 2-4 months with intrussive thoughts about hanging himself from the balcony, even visualizing it. His plan involved tying his bed sheets together. In addition to these thoughts, he reported multiple vegetative symptoms of depression such as fatigue, poor appetite, and lack of motivation. He hasn't been attending classes or completing work. He doesn't even respond to his professors when they inquire about his uncharacteristic lack of attendance. Some classes he hasn't attended all semester. He states when he is able to get to class he "get it". He denies symptoms of solomon or psychosis and doesn't view himself as particularly anxious. Physical Exam Vital Signs (Past 24 Hours) Last Vital Signs Temp 36.9 C 08/24/21 08:25 Pulse 60 08/24/21 08:25 Resp 16 08/24/21 08:25 BP 120/76 08/24/21 08:25 Pulse Ox 99 08/24/21 08:25 See admission H&P and DOD summary. Principal Diagnosis Major Depressive Disorder Psychiatric Data See daily stay summary. In short, patient was engaged with the social/therapeutic milieu of the unit, safety was maintained and the patient was cooperative with care. Medication changes included initiation of fluoxetine and they tolerated this well. If depression symptoms worsen in the future further titration of fluoxetine could be considered and Wellbutrin could be considered for augmentation. A family session was held and safety plan was completed prior to discharge. Javid had fleeting periods of ego-dystonic SI during the early part of his hospitalization but never with thoughts of plan nor intent and with gradual reduction in frequency and intensity of these thoughts. In the days leading up to discharge he consistently denied any SI. He actively and insightfully participated in safety planning and in discussions about ways to seek support and recognizing warning signs and utilizing coping skills. Reviewed mobile apps that could be used for additional ways to have his safety plan and contacts easily available should thoughts of SI re-emerge in the future. Reviewed importance of seeking emergency care should SI re-emerge, intensify, worsen or should he feel unsafe in the future which he agrees to do. On the day of discharge he stated his mood was "excited and good" and he remained future- oriented including spending time with his girlfriend, seeing his family and engaging in aftercare appointments for psychiatry, therapy and [employer] student care and advocacy. Day of Discharge Assessment Today the patient voices readiness for discharge. They note improvement in mood and anxiety. They deny thoughts of harm to self or others. Thoughts are organized and they are clinically improved from admission. There is no evidence of psychosis. They improved in the hospital with support and medication adjustments. They agree to take medications as prescribed and keep follow-up appointments. At the time of the discharge they are deemed to be stable and appropriate for outpatient level of care. They are not deemed to be at imminent risk of harm to self or others. They are aware of emergency and crisis services. Knows to call 911 or go to nearest emergency care center if in a crisis which cannot be handled as an outpatient. Transition of Care Transition Of Care Record: was reviewed with the patient Advance Directives Advance Directives Information Provided: Yes Advance Directives: No Mental Health Advance Directive: No Advance Directives on File: No Living Will: No Power of Rigging Engineer: No Advance Directives Reason:: Declines as Mental Health Visit. Risk Factors Assessment Acute risk is low given denial of SI, coping skills, improvement in mood, outpatient providers, strong social supports, lack of access to lethal means and future-oriented. Chronic risk is low to moderate given non-modifiable risks of prior psychiatric hospitalization and diagnosis of MDD. Most significant modifiable factors to maintain low acute risk and reduce care home risk are to engage with outpatient therapy, continue with medications and to utilize safety plan if needed. Male: Yes : Yes Do You Have Access To A Gun?: No Mental Health Diagnoses: Yes Substance Use Disorders: No Previous Attempt: No Previous Psychiatric Hospitalization: No Hopelessness: No Protective Factors Assessment Employed: Yes Stable Relationships: Yes Supportive Family: Yes Tobacco Cessation at Discharge Tobacco Cessation Medication Prescribed at Discharge: Not Applicable/Non-Smoker Discharge Data Consultations 08/18/21 15:03 ED Decision to Admit Stat Lab Results 08/18/21 08/18/21 08/18/21 12:16 12:16 12:16 WBC 7.51 RBC 5.36 Hgb 16.2 Hct 46.4 MCV 86.6 MCH 30.2 MCHC 34.9 RDW Std Deviation 38.3 RDW Coeff of Maria C 12.0 Plt Count 314 MPV 9.7 Immature Gran % (Auto) 0.1 Neut % (Auto) 51.1 Lymph % (Auto) 35.8 [place] % (Auto) 8.4 Eos % (Auto) 3.5 Baso % (Auto) 1.1 Neut # (Auto) 3.84 Lymph # (Auto) 2.69 [place] # (Auto) 0.63 H Eos # (Auto) 0.26 Baso # (Auto) 0.08 Immature Gran # (Auto) 0.01 Sodium 139 Potassium 3.8 Chloride 103 Carbon Dioxide 28 Anion Gap 8 BUN 11 Creatinine 1.02 Est Cr Clr Drug Dosing 117.8 Est GFR ( Amer) 122.1 Est GFR (Non-Af Amer) 105.3 BUN/Creatinine Ratio 10.8 Glucose 95 Calcium 10.1 Total Bilirubin 0.6 AST 12 L ALT 8 Alkaline Phosphatase 64 Total Protein 7.4 Albumin 5.2 H Globulin 2.2 L Albumin/Globulin Ratio 2.4 H TSH 2.771 Urine Color Urine Appearance Urine pH Ur Specific [place] Urine Protein Urine Glucose (UA) Urine Ketones Urine Blood Urine Nitrite Urine Bilirubin Urine Urobilinogen Ur Leukocyte Esterase Salicylates Urine Opiates Screen Ur Methadone, Qual Acetaminophen Urine Barbiturates Ur Phencyclidine (PCP) U Amphetamin/Meth Scrn MDMA (Ecstasy) Screen U Benzodiazepines Scrn Ur Cocaine Metabolite U Marijuana (THC) Screen Ethyl Alcohol mg/dL SARS-CoV-2, RNA, NAAT 08/18/21 08/18/21 08/18/21 12:16 12:16 12:32 WBC RBC Hgb Hct MCV MCH MCHC RDW Std Deviation RDW Coeff of Maria C Plt Count MPV Immature Gran % (Auto) Neut % (Auto) Lymph % (Auto) [place] % (Auto) Eos % (Auto) Baso % (Auto) Neut # (Auto) Lymph # (Auto) [place] # (Auto) Eos # (Auto) Baso # (Auto) Immature Gran # (Auto) Sodium Potassium Chloride Carbon Dioxide Anion Gap BUN Creatinine Est Cr Clr Drug Dosing Est GFR ( Amer) Est GFR (Non-Af Amer) BUN/Creatinine Ratio Glucose Calcium Total Bilirubin AST ALT Alkaline Phosphatase Total Protein Albumin Globulin Albumin/Globulin Ratio TSH Urine Color Yellow Urine Appearance Clear Urine pH 5.5 Ur Specific [place] 1.012 Urine Protein Negative Urine Glucose (UA) Negative Urine Ketones Negative Urine Blood Negative Urine Nitrite Negative Urine Bilirubin Negative Urine Urobilinogen Negative Ur Leukocyte Esterase Negative Salicylates < 3.0 L Urine Opiates Screen Ur Methadone, Qual Acetaminophen < 3 L Urine Barbiturates Ur Phencyclidine (PCP) U Amphetamin/Meth Scrn MDMA (Ecstasy) Screen U Benzodiazepines Scrn Ur Cocaine Metabolite U Marijuana (THC) Screen Ethyl Alcohol mg/dL < 10.0 SARS-CoV-2, RNA, NAAT 08/18/21 08/18/21 12:32 12:32 WBC RBC Hgb Hct MCV MCH MCHC RDW Std Deviation RDW Coeff of Maria C Plt Count MPV Immature Gran % (Auto) Neut % (Auto) Lymph % (Auto) [place] % (Auto) Eos % (Auto) Baso % (Auto) Neut # (Auto) Lymph # (Auto) [place] # (Auto) Eos # (Auto) Baso # (Auto) Immature Gran # (Auto) Sodium Potassium Chloride Carbon Dioxide Anion Gap BUN Creatinine Est Cr Clr Drug Dosing Est GFR ( Amer) Est GFR (Non-Af Amer) BUN/Creatinine Ratio Glucose Calcium Total Bilirubin AST ALT Alkaline Phosphatase Total Protein Albumin Globulin Albumin/Globulin Ratio TSH Urine Color Urine Appearance Urine pH Ur Specific [place] Urine Protein Urine Glucose (UA) Urine Ketones Urine Blood Urine Nitrite Urine Bilirubin Urine Urobilinogen Ur Leukocyte Esterase Salicylates Urine Opiates Screen Neg Ur Methadone, Qual Neg Acetaminophen Urine Barbiturates Neg Ur Phencyclidine (PCP) Neg U Amphetamin/Meth Scrn Neg MDMA (Ecstasy) Screen Neg U Benzodiazepines Scrn Neg Ur Cocaine Metabolite Neg U Marijuana (THC) Screen Neg Ethyl Alcohol mg/dL SARS-CoV-2, RNA, NAAT NEGATIVE Hospital Course (1) Depression with suicidal ideation: (2) Major depressive disorder in partial remission: 08/23/21: Continue fluoxetine. 08/22/21: Continue fluoxetine. 08/21/21: Continue with fluoxetine. Adding colace and miralax for constipation. 08/20/21: Increased fluoxetine to 20mg qd. 08/19/21: The patient was admitted to the [facility] ([facility]) on q15 min checks (behavioral with suicide precautions) for safety. The patient will participate in group, recreational, and milieu therapies and will be offered additional individual and family sessions as clinically appropriate. Risks/benefits/alternatives reviewed re: antidepressants for the treatment of depression and/or anxiety. Discussion included but was not limited to FDA warnings re: suicidality in adolescents and young adults. The patient agreed to a trial of Prozac 10 mg today then 20 mg starting tomorrow. Mental Health & Subst Abuse Tx Psychiatrist Name of Psychiatrist: Micheal Darling Psychiatrist's Date of Appointment with Psychiatrist: 09/19/21 Time of Appointment with Psychiatrist: 2:30pm Psychiatric Appointment Comment: [address] [place], [place] Therapist Name of Therapist: [facility] Therapist's Date of Therapist Appointment: 08/25/21 Time of Therapist Appointment: 8:00am Therapy Appointment Comment: Telehealth Master Craftsman Name of Master Craftsman: None Post Discharge Appointments Primary Care Physician Name Of Family Doctor: None local Smoking Cessation Counseling Tobacco Cessation Medication Prescribed at Discharge: Not Applicable/Non-Smoker Other #1: Name of Aftercare Appointment: Student [facility] Advocacy - [facility] Phone Number of Aftercare Appointment: [phone] Date of Aftercare Appointment: 08/26/21 Time of Aftercare Appointment: 1:00 p.m. Aftercare Appointment Comment: Telehealth link will be sent directly to your [employer] email Discharge Plan Discharge Items Patient Disposition: Home - Self-Care Reason For Visit: MDD Discharge Diagnosis: Major Depressive Disorder Activity: Resume your previous activity Non-emergency contact: Primary Care Provider, Psychiatrist and Therapist Call non-emergency contact if: you have any medication questions and your symptoms worsen Follow-up/Referrals: [facility] [Primary Care Provider] - Diet: Regular Addtl Attending Provider Instructions: Optional mobile apps: -Suicide Safety Plan -Virtual Hope Box SPECIAL CARE INSTRUCTIONS: 1. Follow through with your scheduled aftercare appointments. If unable to keep an appointment, please call to reschedule. 2. Take your medication only as prescribed. Medication should not be changed or stopped without the approval of your doctor. In the event of worsening symptoms or concerns about side effects, contact your doctor immediately. 3. Utilize new healthy coping skills, anger management skills, and stress management skills learned during your hospitalization. Journal feelings and process them with a support person. Identify stressors or situations that may result in relapse, deterioration or inappropriate behaviors and develop a plan to deal with those issues. 4. If your coping skills are ineffective and you are in crisis, contact your outpatient providers for direction. If unable to reach your providers, please call the [facility] CRISIS LINE AT , go to the [facility] walk-in center at [address], [address], [place], or go to the closest Emergency Room. 5. Avoid alcohol and un-prescribed drugs. 6. You have been provided with the Mental Health Advance Directives Pamphlet for your review. 7. Your condition is stable for discharge to outpatient level of care, but recovery is an ongoing process. Ifthoughts to harm yourself or others return, follow the safety plan developed during your stay. Planning for a safe return home includes securing weapons. Our treatment team recommends weaponsbe removed from the home until your outpatient provider reassesses your progress. In rare cases where the items themselvescannot be removed, guns and ammunitionshould be secured separatelyand keys stored by a reliable personoutside of the home. If you were admitted on an involuntary commitment, the police or other legal authorities may be involved in this process. AFTERCARE APPOINTMENTS: * Please call your insurance company prior to your scheduled appointment to confirm your aftercare providers are covered. Take your insurance information to your appointments. WHO TO CALL AND WHEN: Medical Emergencies: For questions or emergencies related to your hospital stay, please contact the Inpatient Behavioral Health Unit at [phone]. A intake clinician is on-call 08/01 for the Behavioral Health Unit for emergencies At any time you feel your situation is an emergency, you may also call 911 immediately. Pending Studies at Discharge: No Stand-Alone Forms: My [facility] Medications and DC Order Prescriptions: New fluoxetine 20 mg Capsule 20 mg PO QAM 30 Days Qty: 30 RF: 0 Discharge Orders: Discharge Order (Routine); Ordered 08/24/21 Ordered By: Alma Rosa Dickens/Other Patient Handouts: Journaling for Mental Health, Depression: Tips to Help Yourself Admission Data Admit Date/Time: 08/18/21 15:19 Attending Provider: Amelia Baez Admit Provider: Good,Amelia R. Primary Care Provider: [facility] Other Interventions: Discharge Summary Assessment (RN) Last Done: 08/24/21 08:25 PSY Interdisciplinary Discharge Planning Last Done: 08/23/21 10:58 Coding Level of Care Code 64319 D/C day mgmt > 30 min Diagnoses Depression with suicidal ideation F32.A; R45.851 Major depressive disorder in partial remission F32.4 Time Spent (min) 45
[2021-08-24] MEDS: DOCUSATE SODIUM 100 MG CAP PO SCH (09:00)
[2021-08-24] MEDS: FLUoxetine HCL 20 MG CAP PO SCH (09:00)
[2021-08-24] MEDS: POLYETHYLENE (MIRALAX) 17 GM PACK PO SCH (09:03)
== END 2021-08-24 14:58 | disposition home or self-care (01) | DRG 881 ==
LOC: ED 11:54 → 3S 15:10